=== PATIENT | female | born 1970 | race Caucasian/White ===

== ENCOUNTER → 2020-10-28 | Outpatient (CLI) | payer OTHER | LOC: LAB 08:13 | DX: T84.84XA Pain due to internal orthopedic prosthetic devices, implants and grafts, initial encounter (principal) | CPT/HCPCS: 36415; 85652; 86140 ==

== ENCOUNTER → 2022-01-25 | Outpatient (CLI) | payer OTHER | LOC: KOH-I 10:00 | DX: G43.809 Other migraine, not intractable, without status migrainosus (principal); I10 Essential (primary) hypertension; E78.5 Hyperlipidemia, unspecified; E66.09 Other obesity due to excess calories; E89.0 Postprocedural hypothyroidism; M18.12 Unilateral primary osteoarthritis of first carpometacarpal joint, left hand; M17.12 Unilateral primary osteoarthritis, left knee; E55.9 Vitamin D deficiency, unspecified | CPT/HCPCS: 70551 ==